=== PATIENT | female | born 1985 | race African-American/Black ===

== ENCOUNTER 2018-08-01 08:15 | Inpatient (IN) | payer OTHER ==
[2018-08-01 10:29] LABS: Bilirubin,Urine NEG (Negative); Blood,Urine SM (Negative); Color,Urine Yellow (Yellow); Mucus,Urine FEW /HPF; Protein,Urine <15 mg/dL mg/dL (Negative); Urobilinogen,Urine < 2.0 mg/dL (<2.0)
[2018-08-01 10:43] LABS: Hematocrit 33.3 % (30.3-42.9); Hemoglobin 11.1 gm/dl (10.1-14.3); Mean Corpuscular HGB Conc 33 % (30-34); Mean Corpuscular Hemoglobin 30 pg (28-32); Mean Corpuscular Volume 91 fl (79-97); Platelet Count 153 K/mm3 (140-440); Red Blood Count 3.68 M/mm3 (3.65-5.03); Red Cell Distribution Width 13.1 % (13.2-15.2)
[2018-08-01 10:54] LABS: Alanine Aminotransferase 11 units/L (7-56); Uric Acid 3.7 mg/dL (3.5-7.6)
[2018-08-01] MEDS ORDERED: LACTATED RINGERS 1,000 ML ONE ×2 (12:28→13:15)
[2018-08-01] MEDS ORDERED: BRETHINE SUB-Q PRN (13:14)
[2018-08-01] MEDS ORDERED: MINERAL OIL PO PRN (13:14)
[2018-08-01] MEDS ORDERED: STADOL IV PRN (13:14)
[2018-08-01] MEDS ORDERED: XYLOCAINE 2% INFILTRATI ONE (13:14)
[2018-08-01] MEDS ORDERED: STADOL ONE (13:14)
[2018-08-01] MEDS ORDERED: BRETHINE IVP PRN (13:14)
[2018-08-01] MEDS ORDERED: NARCAN 2 MG/2 ML IV PRN (13:32)
--- NOTE | 2018-08-01 13:32 | Anesthesia Consultation ---
Anesthesia Consult and Med Hx Date of service: 08/01/18 - Airway Anesthetic Teeth Evaluation: Good ROM Head & Neck: Adequate Mental/Hyoid Distance: Adequate Mallampati Class: Class II Intubation Access Assessment: Probably Good - Pre-Operative Health Status ASA Pre-Surgery Classification: ASA2 Proposed Anesthetic Plan: Epidural, Spinal - Pulmonary Hx Asthma: No - Cardiovascular System Hx Hypertension: No - Central Nervous System Hx Seizures: No Hx Psychiatric Problems: No - Endocrine Hx Renal Disease: No Hx Hypothyroidism: No Hx Hyperthyroidism: No - Hematic Hx Sickle Cell Disease: No - Other Systems Hx Alcohol Use: No
[2018-08-01] MEDS ORDERED: PITOCin/NS 30 UNIT/500ML 30 UNITS/500 ML BAG IV SCH (14:00)
[2018-08-01] MEDS ORDERED: PITOCin/NS 20 UNIT/1000ML DRIP 20 UNITS/1,000 ML BAG IV SCH (14:00)
[2018-08-01] MEDS ORDERED: LACTATED RINGERS 1,000 ML IV SCH (14:00)
[2018-08-01] MEDS: fentaNYL-BUPIV 2 MCG/ML-0.125% 200 MCG/100 ML BAG EPIDURAL SCH ×2 (14:11→22:04)
--- NOTE | 2018-08-01 14:46 | History and Physical Report ---
History of Present Illness Date of examination: 08/01/18 Date of admission: 08/01/18 12:15 Chief complaint: Contractions History of present illness: 33 yo G 1 P 0 @ 39 weeks 6 days here with c/o contractions since 07/30/18 with increased frequency since this AM. She reports spotting and +FMs but denies LOF. She is a [facility] patient who initiated care at 13 weeks gestation. Her course has been unremarkable. labs: B+, antibody neg, Pap normal, Rubella immune, VDRL neg, urine cultures neg, HBsAg neg, HIV neg, CT/NG neg/neg, MSAFP/MULTIPLE MARKERS neg, Diabetes screen 129, GBS neg. Past History Past Medical History: no pertinent history Past Surgical History: no surgical history Family/Genetic History: none Social history: , lives with family, full code. denies: smoking, alcohol abuse, prescription drug abuse, IV drug use - Obstetrical History Expected Date of Delivery: 08/02/18 Actual Gestation: 39 Week(s) 6 Day(s) : 1 Para: 0 Hx # Term Pregnancies: 0 Number of Pregnancies: 0 Spontaneous Abortions: 0 Induced : 0 Number of Living Children: 0 Medications and Allergies Allergies Allergy/AdvReac Type Severity Reaction Status Date / Time No Known Allergies Allergy Unverified 08/01/18 09:19 Active Meds: Active Medications Butorphanol Tartrate (Stadol) 2 mg IV Q2H PRN PRN Reason: Pain , Severe (7-10) Ephedrine Sulfate (Ephedrine Sulfate) 10 mg IV Q2M PRN PRN Reason: Hypotension Ephedrine Sulfate (Ephedrine Sulfate) 10 mg IV Q2M PRN PRN Reason: Hypotension Lactated Ringer's (Lactated Ringers) 1,000 mls @ 125 mls/hr IV DIRECT DONNY Oxytocin/Sodium Chloride (Pitocin/Ns 20 Unit/1000ml Drip) 20 units in 1,000 mls @ 125 mls/hr IV DIRECT DONNY Oxytocin/Sodium Chloride (Pitocin/Ns 30 Unit/500ml) 30 units in 500 mls @ 1 mls /hr IV TITR DONNY; Protocol Fentanyl/Bupivacaine/Sodium Chlor (Fentanyl-Bupiv 2 Mcg/Ml-0.125%) 200 mcg in 100 mls @ 12 mls/hr EPIDURAL TITR DONNY; Protocol Last Admin: 08/01/18 14:11 Dose: 12 mls/hr Mineral Oil (Mineral Oil) 30 ml PO QHS PRN PRN Reason: Constipation Naloxone HCl (Narcan 2 Mg/2 Ml) 0.2 mg IV Q5M PRN PRN Reason: Respiratory sedation Terbutaline Sulfate (Brethine) 0.25 mg SUB-Q ONCE PRN PRN Reason: Hyperstimulation/Hypertonicity Terbutaline Sulfate (Brethine) 0.25 mg IVP ONCE PRN PRN Reason: Hyperstimulation/Hypertonicity Review of Systems All systems: negative - Vital Signs Vital signs: Vital Signs Pulse BP 80 140/99 08/01/18 08:55 08/01/18 08:55 Temp Pulse Resp BP Pulse Ox 97.9 F 110 H 16 120/73 99 08/01/18 09:03 08/01/18 14:36 08/01/18 09:03 08/01/18 14:28 08/01/18 14:36 - Obstetrical FHR: auscultation normal, category 1 FHR comments: baseline 135, moderate variability, 15x15 accels no decels Cervical Dilatation: 4 (per RN) Cervical Effacement Percentage: 90 (per RN) station: -2(per RN) Uterine Contraction Pattern: Regular Results Result Diagrams: 08/01/18 Unknown 08/01/18 Unknown Abnormal lab results 08/01/18 08/01/18 Range/Units Unknown Unknown RDW 13.1 L (13.2-15.2) % Creatinine 0.4 L (0.7-1.2) mg/dL Lactate Dehydrogenase 314 H (91-180) units/L All other labs normal. Assessment and Plan - Patient Problems (1) 39 weeks gestation of Current Visit: Yes Status: Acute (2) Active labor at term Current Visit: Yes Status: Acute Plan to address problem: Admit to L&D with routine labor orders Start Oxytocin for labor augmentation Anticipate vaginal delivery (3) SROM (spontaneous rupture of membranes) Current Visit: Yes Status: Acute
[2018-08-02] MEDS ORDERED: TYLENOL PO PRN ×2 (02:39→10:45)
[2018-08-02] MEDS: fentaNYL-BUPIV 2 MCG/ML-0.125% 200 MCG/100 ML BAG EPIDURAL SCH (04:38)
[2018-08-02] MEDS ORDERED: XYLOCAINE MPF 2% ONE (08:02)
[2018-08-02] MEDS ORDERED: DULCOLAX PR PRN (10:45)
[2018-08-02] MEDS ORDERED: PHENERGAN PO PRN (10:45)
[2018-08-02] MEDS ORDERED: BENADRYL PO PRN (10:45)
[2018-08-02] MEDS ORDERED: ZOFRAN IV PRN (10:45)
[2018-08-02] MEDS ORDERED: LANSINOH TP PRN (10:45)
[2018-08-02] MEDS ORDERED: NORCO 5/325 PO PRN (10:45)
[2018-08-02] MEDS ORDERED: MILK OF MAGNESIA PO PRN (10:45)
[2018-08-02] MEDS ORDERED: TUCKS PAD TP PRN (10:45)
[2018-08-02] MEDS ORDERED: MOTRIN PO SCH (11:00)
[2018-08-02] MEDS ORDERED: SODIUM CHLORIDE FLUSH SYRINGE 10 ML IV NR (11:00)
--- NOTE | 2018-08-02 11:04 | Procedure Note ---
OB Delivery Note - Delivery Date of Delivery: 08/02/18 (10:18) Surgeon: JAYLEEN VAZQUEZ (KARI) Estimated blood loss: 200cc - Vaginal Delivery presentation: vertex Delivery position: OA Intrapartum events: meconium (RT/NICU present for delivery) Delivery induction: oxytocin Delivery monitor: external FHT, external uterine Route of delivery: (10:18) Delivery placenta: spontaneous (10:21) Delivery cord: nuchal cord (x1 loose, delivered intact via somersault maneuver) , 3 umbilical vessels Episiotomy: none Delivery laceration: 1st degree Delivery repair: vicryl (2-0, CT) Anesthesia: epidural Delivery comments: viable female (10:18) in LISA position, tight shoulders delivered ( rotated oblique via barrios manuever and Tiny) with good maternal pushing efforts, nuchal cord x1 (loose, delivered intact via somersault maneuver), terminal meconium noted. Cord clamped/ cut by myself and to prewarmed RW for assessment by NICU/RT d/t Meconium stained fluid. Spontaneous brady delivery of intact placenta at 10:21. Fundus massaged firm. 1st degree perineal laceration repaired with 2-[address] under epidural anesthesia. Pt tolerated well. 200ml clear yellow urine emptied via red rubber catheter. FF@U-2. small lochia. EBL 200ml. - Infant A at 1 minute: 8 at 5 minutes: 9 Gender: Female (3369g, 7lbs 5oz, 20")
[2018-08-02] MEDS: MOTRIN PO SCH (18:24)
[2018-08-02 21:24] LABS: Hematocrit 31.8 % (30.3-42.9); Hemoglobin 11.1 gm/dl (10.1-14.3)
[2018-08-03] MEDS: MOTRIN PO SCH ×3 (06:00→09:32)
--- NOTE | 2018-08-03 09:55 | Progress Note ---
Assessment and Plan A: PP Day #1 Stable P: Follow Routine Orders D/C home today per patient request RTO in 6 Weeks Subjective - Subjective Date of service: 08/03/18 Patient reports: appetite normal, voiding normally, flatus, ambulating normally : doing well, bottle feeding (and ) Objective - Vital Signs Latest vital signs: Vital Signs Temp Pulse Resp BP BP Pulse Ox 08/03/18 09:32 20 08/02/18 23:54 98.6 F 88 16 124/86 98 08/02/18 20:31 98.9 F 95 H 18 126/78 99 08/02/18 13:10 98.8 F 98 H 16 133/84 96 08/02/18 11:16 97 H 97 08/02/18 11:14 97 H 128/79 08/02/18 11:11 94 H 98 08/02/18 11:05 101 H 97 08/02/18 11:01 98 H 97 08/02/18 10:59 96 H 129/78 08/02/18 10:52 94 H 94 08/02/18 10:47 98 H 97 08/02/18 10:44 100 H 142/85 08/02/18 10:43 97 H 98 08/02/18 10:38 97 H 98 08/02/18 10:33 102 H 98 08/02/18 10:29 101 H 133/77 08/02/18 10:28 100 H 97 Intake and Output 08/02/18 08/03/18 08/03/18 22:59 06:59 14:59 Output Total 1750 300 Balance -1750 -300 Output: Urine 1750 300 Void 1750 300 Other: Total, Output Amount 250 300 - Exam Breasts: Present: normal Cardiovascular: Present: Regular rate Lungs: Present: Clear to auscultation, Normal air movement Abdomen: Present: normal appearance, soft, normal bowel sounds Vulva: right: ulceration Uterus: Present: normal, firm, fundal height below umbilicus Extremities: Present: normal
--- NOTE | 2018-08-03 09:56 | Discharge Summary ---
Providers - Providers Date of Admission: 08/01/18 12:15 Date of discharge: 08/03/18 Attending physician: JOSEPH BATISTA Primary care physician: JOSEPH BATISTA Hospitalization Reason for admission: active labor Delivery: Episiotomy: none Laceration: none Other procedures: none Discharge diagnosis: IUP at term delivered baby: female Condition at discharge: Good Disposition: DC-01 TO HOME OR SELFCARE Plan - Provider Discharge Summary Activity: routine, no sex for 6 weeks, no heavy lifting 4 weeks, no strenuous exercise Diet: routine Instructions: routine Additional instructions: [] Smoking cessation referral if applicable(refer to patient education folder for contact #) [] Refer to [facility] Booklet Call your doctor immediately for: * Fever > 100.5 * Heavy vaginal bleeding ( >1 pad per hour) * Severe persistent headache * Shortness of breath * Reddened, hot, painful area to leg or breast * Drainage or odor from incision. * Keep incision clean and dry at all times and follow doctor's instructions regarding bathing/showering - Follow up plan Follow up: JOSEPH BATISTA [Primary Care Provider] - 6 Weeks
[2018-08-03 20:04] VITALS: BP 103/83
== END 2018-08-03 16:30 | disposition home or self-care (01) | DRG 775 ==
LOC: TRG 08:15 → LD 12:15 → OB 08-02 13:34
PROVIDERS: ADMIT Obstetrics & Gynecology; ATTEND Obstetrics & Gynecology
PROC: 10E0XZZ Delivery of Products of Conception, External Approach (ICD-10-PCS; principal; 2018-08-02)
PROC: 3E033VJ Introduction of Other Hormone into Peripheral Vein, Percutaneous Approach (ICD-10-PCS; 2018-08-02)
PROC: 3E0R3BZ Introduction of Anesthetic Agent into Spinal Canal, Percutaneous Approach (ICD-10-PCS; 2018-08-02)
PROC: 00HU33Z Insertion of Infusion Device into Spinal Canal, Percutaneous Approach (ICD-10-PCS; 2018-08-02)
PROC: 0HQ9XZZ Repair Perineum Skin, External Approach (ICD-10-PCS; 2018-08-02)
DX: O77.0 Labor and delivery complicated by meconium in amniotic fluid (principal); Z3A.39 39 weeks gestation of pregnancy; Z37.0 Single live birth; O69.81X0 Labor and delivery complicated by cord around neck, without compression, not applicable or unspecified; O70.0 First degree perineal laceration during delivery
CPT/HCPCS: 36415; 81001; 82565; 83615; 84450; 84460; 84550; 85014; 85018; 85027; 86850; 86900; 86901; 99211; G0463; J0595; J2590; J7120